=== PATIENT | male | born 1950 | race Caucasian/White ===

== ENCOUNTER 2016-06-12 14:09 | Emergency (ER) | payer MEDICARE, OTHER ==
[~2016-06-12] VITALS: Ht 177.8 cm; Wt 165.6 kg
[~2016-06-12 14:09] MED LIST: ALLOPURINOL PO; ALLOPURINOL100 MG PO; AMBIEN10 MG PO; ASPIRIN325 MG PO; ATENOLOL PO; ATENOLOL25 MG PO; BACTROBAN CREAM15 GM PO; BUMEX PO; BUMEX2 MG PO; DAYPRO600 M1 PO; INDOCIN50 MG PO; KEFLEX500 MG PO; LISINOPRIL HCTZ1 TAB PO; LISINOPRIL10 MG PO; POTASSIUM PO; POTASSIUM20 MEQ PO; SIMVASTATIN20 MG PO; URIC ACID PO
[2016-06-12] MEDS ORDERED: TRAMADOL HCL50 MG PO (14:30)
[2016-06-12 14:31] VITALS: BP 120/55
[2016-06-12] MEDS ORDERED: MELOXICAM7.5 MG PO (14:31)
[2016-06-12] MEDS ORDERED: KEFLEX500 M1 PO (14:41)
== END 2016-06-12 15:02 | disposition home or self-care (01) ==
LOC: ED 14:09
DX: S81.811A Laceration without foreign body, right lower leg, initial encounter (principal); Z88.8 Allergy status to other drugs, medicaments and biological substances; W45.8XXA Other foreign body or object entering through skin, initial encounter; Y93.89 Activity, other specified; Y92.9 Unspecified place or not applicable; Y99.9 Unspecified external cause status

== ENCOUNTER 2016-11-15 15:31 | Emergency (ER) | payer MEDICARE, OTHER ==
[~2016-11-15] VITALS: Ht 175.2 cm; Wt 163.3 kg
[~2016-11-15 15:31] MED LIST changes: +KEFLEX500 M1 PO; +MELOXICAM7.5 MG PO; +TRAMADOL HCL50 MG PO
[2016-11-15 15:34] VITALS: BP 169/79
[2016-11-15] MEDS ORDERED: GLUCOSAMINE SU500 MG PO (15:36)
[2016-11-15] MEDS ORDERED: CEPHALEXIN500 M1 PO (16:36)
== END 2016-11-15 16:42 | disposition home or self-care (01) ==
LOC: ED 15:31
DX: S81.812A Laceration without foreign body, left lower leg, initial encounter (principal); Z88.8 Allergy status to other drugs, medicaments and biological substances; Z79.899 Other long term (current) drug therapy; X58.XXXA Exposure to other specified factors, initial encounter; Y93.89 Activity, other specified; Y92.89 Other specified places as the place of occurrence of the external cause; Y99.8 Other external cause status

== ENCOUNTER 2017-01-13 15:30 | Emergency (ER) | payer MEDICARE, OTHER ==
[~2017-01-13] VITALS: Ht 175.2 cm; Wt 163.3 kg
[~2017-01-13 15:30] MED LIST changes: +CEPHALEXIN500 M1 PO; +GLUCOSAMINE SU500 MG PO
[2017-01-13 15:33] VITALS: BP 147/68
[2017-01-13] MEDS ORDERED: CEFADROXIL500 M1 PO (16:44)
== END 2017-01-13 17:53 | disposition home or self-care (01) ==
LOC: ED 15:30
DX: S81.811A Laceration without foreign body, right lower leg, initial encounter (principal); Z88.8 Allergy status to other drugs, medicaments and biological substances; Z79.899 Other long term (current) drug therapy; W29.3XXA Contact with powered garden and outdoor hand tools and machinery, initial encounter; Y93.89 Activity, other specified; Y92.89 Other specified places as the place of occurrence of the external cause; Y99.8 Other external cause status

== ENCOUNTER → 2017-01-14 | Outpatient (CLI) | payer MEDICARE, OTHER ==
[~2017-01-14] MED LIST changes: +CEFADROXIL500 M1 PO
[2017-01-14 11:14] LABS: BUN 23 mg/dl (7-24); CHLORIDE 107 mmol/L (98-107); CHOLESTEROL 182 mg/dL (<200); CREATININE 0.92 mg/dL (0.70-1.30); HDL CHOLESTEROL 63 mg/dl (40-60); LDL CHOLESTEROL 107 mg/dL (9-159); POTASSIUM 4.2 mmol/L (3.5-5.1); SODIUM 143 mmol/L (136-145); TRIGLYCERIDES 59 mg/dl (<150); VLDL CHOLESTEROL 12 mg/dL (6-40)
== END | disposition home or self-care (01) ==
LOC: LAB 10:13
PROVIDERS: Family Medicine
DX: I10 Essential (primary) hypertension (principal); E78.5 Hyperlipidemia, unspecified; E66.01 Morbid (severe) obesity due to excess calories; Z79.899 Other long term (current) drug therapy

== ENCOUNTER → 2017-01-19 | Outpatient (CLI) | payer MEDICARE, OTHER ==
--- NOTE | ~2017-01-19 | WRIGHTHP ---
[place], [place] PATIENT HISTORY AND PHYSICAL EXAM NAME: FRANSISCA CLEARY [facility] #: [id number] UNIT #: [id number] ROOM: DOCTOR: COREY JOSUE M.D. BIRTHDATE: [birth year] DOS: 01/19/2017 This is a new wound care evaluation. CHIEF COMPLAINT: Chronic wound of the right lower extremity. HISTORY OF PRESENT ILLNESS: A 66-year-old male with a history of severe leg edema who basically injured his anterior leg when he was using a chain saw. Apparently, the handle end of the chainsaw bumped his anterior leg, right leg, severely suffered a very large avulsion type injury of the anterior tibia. He did get saw dust into the wound and went to the Emergency Department for an evaluation. This is approximately a week ago. The wound was cleansed, however, due to the way the injury was, there was really no way to suture the wound together. They had prescribed him some antibiotics, Keflex, I believe and Bactroban to the wound base, so he has been using that was advised to come to the wound clinic. PAST MEDICAL HISTORY: Significant for bilateral lower extremity swelling. Apparently, he has had wounds on his left leg that took quite a while to heal. He has a history of peripheral vascular disease and what sounds like multiple venous studies and he thinks he has had venous ablation done approximately 3 years ago. When I asked if he has had any arterial problems. He does not recall that specifically. He has chronic edema; however, no history of acute DVT that he is aware of. He has not had any recent hospital admissions. PAST SURGICAL HISTORY: He has had a repair of bowel abscess several years ago, bilateral cataract surgery. SOCIAL HISTORY: He does drink alcohol and does not smoke, although has smoked many, many years ago. He is not diabetic. ALLERGIES: Antihistamines. MEDICATIONS: As follows: Tramadol 50 mg p.o. q.i.d. p.r.n., glucosamine 500 p.o. daily, atenolol 25 p.o. b.i.d., Bumex 2 mg daily, meloxicam 7.5 daily, potassium chloride 20 mEq daily, Keflex 500 p.o. b.i.d. for 7 days. REVIEW OF SYSTEMS: He denies any chest pain consistent with angina or shortness of breath. No nausea or vomiting, abdominal pain, or diarrhea. No problems with the Keflex that he is taking for his wound. There is very little drainage coming from the wound. He does have some erythema noted around the leg. He says it has been about the same as when he started the antibiotics, although it seems a little bit possibly more pronounced than before. It is not acutely tender. He does have chronic erythema; however, both of his lower extremities. PHYSICAL EXAMINATION: VITAL SIGNS: His vitals are stable. Temperature is 98.5, pulse of 72, respirations 20, blood pressure is 112/60. GENERAL: This is a male who appears as stated age, is a very pleasant and cooperative, is morbidly obese, in no acute distress. His oropharynx is clear. [place], [place] PATIENT HISTORY AND PHYSICAL EXAM NAME: FRANSISCA CLEARY UNIT #: [id number] ROOM: DOCTOR: COREY JOSUE M.D. BIRTHDATE: [birth year] EENT: Extraocular movements are intact. Sclerae are anicteric. NECK: There is no JVD that I could appreciate. LUNGS: Clear to auscultation. CARDIOVASCULAR: S1, S2 regular rate and rhythm. ABDOMEN: Soft and nontender. EXTREMITIES: He has got edema bilaterally quite extensive marked with chronic stasis changes and more like a pitting type of edema. His dorsalis pedis pulse is palpable and having a difficult time feeling the posterior tibial because of this severe edema. The ABIs cannot be performed due to him having trouble lying flat and also due to the extent of edema that he has. He has a got normal capillary refill and his toes are warm and monofilament testing is normal. He has a fairly large open area on the right anterior leg that is measuring 4.4 x 1.7 x 0.1. There is a moderate amount of devitalized tissue. There is a fairly thick eschar in the center, but then there is an open area around it as well as devitalized epidermis just sloughing off at the edges of the wound. A selective debridement was done to remove devitalized tissue. This was accomplished with forceps and scissors. There is lxeyzex-dg-sxkeqmjh bleeding that was controlled with pressure. Cetacaine spray was used for topical anesthesia. Timeout was conducted prior to the start of the procedure. The patient tolerated the debridement well. Post-debridement measurements are slightly larger at 4.2 x 2.5 x 0.2. The fat layer was exposed and there is still some devitalized tissue, left post-debridement. ASSESSMENT AND PLAN: Traumatic injury of the right lower extremity in a patient with venous stasis and severe lymphedema. We would like to use TheraHoney at this time for debridement purposes and Tubigrip for edema control presently. We will go ahead and arrange for arterial studies to be done for the patient. He may benefit from compression wrap to facilitate healing. It did take him a long time to heal in the past. He was aware that he is nondiabetic. I will look and see when he had any recent blood work and if he has not had anything recently. We will go ahead and consider ordering baseline labs. Followup is in one week. At some point, the patient may benefit from lymphedema therapy and we should consider ordering compression wraps for him in the future such as a 2 layer compression system if the patient is agreeable. There was some sdwvatu-qh-iyhalgja erythema noticeable on the right lower extremity. He is on antibiotics; however, it does seem to be more pronounced than the left leg, so I would like to go ahead and start him on doxycycline 100 twice a day for now in addition to the Keflex that he is on. He is to follow up with us in one week. [place], [place] PATIENT HISTORY AND PHYSICAL EXAM NAME: FRANSISCA CLEARY [facility] #: [id number] UNIT #: [id number] ROOM: DOCTOR: COREY JOSUE M.D. BIRTHDATE: [birth year] COREY JOSUE MD CM:HISPHYS:PATIENT HISTORY AND PHYSICAL EXAMINATION [id number] COREY JOSUE M.D. 01/19/171713 interface
== END | disposition home or self-care (01) ==
LOC: WOUNDCARE 03:45
DX: S80.811D Abrasion, right lower leg, subsequent encounter (principal); I87.2 Venous insufficiency (chronic) (peripheral); I89.0 Lymphedema, not elsewhere classified; I73.9 Peripheral vascular disease, unspecified; Z87.891 Personal history of nicotine dependence; X58.XXXD Exposure to other specified factors, subsequent encounter

== ENCOUNTER → 2017-01-27 | Outpatient (CLI) | payer MEDICARE, OTHER ==
--- NOTE | ~2017-01-27 | PR ---
[place], [place] PROGRESS NOTE NAME: FRANSISCA CLEARY [facility] #: [id number] UNIT #: [id number] ROOM: DOCTOR: COREY JOSUE M.D. BIRTHDATE: [birth year] DOS: 01/27/2017 CHIEF COMPLAINT: Ulcer of the right lower extremity. HISTORY OF PRESENT ILLNESS: This is a 66-year-old male with a history of morbid obesity and lymphedema who suffered a traumatic wound to his right lower extremity. He was seen here in the wound clinic one week ago where he did have a fair amount of necrotic tissue present. TheraHoney was prescribed. He did also have some surrounding erythema and antibiotics were also prescribed. He is completing the antibiotics without any problems. He says the wound, he thinks it is looking better. He is using TheraHoney every day. There is no significant pain or drainage. He just had his arterial Dopplers done and we do not have the report yet. OBJECTIVE: VITAL SIGNS: Stable. Temperature is 97.9, pulse 60, respirations 18, blood pressure is 150/70. SKIN: The wound is 3.7 x 1.5 x 0.1. There is still a moderate amount of necrotic tissue present. There is really no surrounding erythema. It is not acutely tender. A debridement was done. The tissue removed was fibrin, slough and subcutaneous tissue. The patient tolerated the debridement well. The post-debridement measurements are slightly larger at 3.9 x 2.2 x 0.2 in depth. ASSESSMENT AND PLAN: Traumatic wound of the right lower extremity, which appears stable. There is still some necrotic tissue present. I will continue with TheraHoney. Have him follow up in one week. We will review the arterial Dopplers with the patient. COREY JOSUE MD CM:PNTRANS [id number] COREY JOSUE M.D. 01/28/17 0755 interface
== END | disposition home or self-care (01) ==
LOC: US 02:32
DX: S81.801A Unspecified open wound, right lower leg, initial encounter (principal); I73.9 Peripheral vascular disease, unspecified; M79.89 Other specified soft tissue disorders; X58.XXXA Exposure to other specified factors, initial encounter; Y93.89 Activity, other specified; Y92.89 Other specified places as the place of occurrence of the external cause; Y99.8 Other external cause status

== ENCOUNTER → 2017-02-03 | Outpatient (CLI) | payer MEDICARE, OTHER ==
--- NOTE | ~2017-02-03 | PR ---
[place], [place] PROGRESS NOTE NAME: FRANSISCA CLEARY [facility] #: [id number] UNIT #: [id number] ROOM: DOCTOR: JOSELO FerroCOREY BIRTHDATE: [birth year] DOS: 02/03/2017 WOUND CARE PROGRESS NOTE CHIEF COMPLAINT: Ulcer of the right lower extremity. HISTORY OF PRESENT ILLNESS: A 66-year-old male with a history of morbid obesity and lymphedema had suffered a traumatic wound to the right lower extremity anterior tibial area and he has been coming to the wound clinic for 2 weeks now. We have been using TheraHoney on it to help debride the wound. He did have his arterial Dopplers done last week. We got the report back, which states normal bilateral lower extremity arterial duplex, no evidence of significant arterial occlusive disease, which is quite different than our ABIs that are on our documentation. In any case, he comes in today without any specific complaints. He has a new small abrasion next to the original wound that he thinks he sustained as he bumped his leg again, but it is fairly new. OBJECTIVE: VITAL SIGNS: Stable, temperature is 98.8, pulse is 62, respirations are 18 and blood pressure is 142/84. SKIN: The wound is measuring 3.5 x 2.7 x 0.1. Overall, it looks pretty good. It is not clear to me why the depth or the width is different but overall looks smaller to me. There is still moderate amount of fibrin and slough present in the base of the wound. I believe that a lot of the changes in the width is likely due to the fact that he had a lot of trauma to the area and the actual open area was not including the original traumatic area and a lot of that tissue had been compromised and has eventually sloughed off, but overall the periphery of the wound looks like it is healing and there is epithelialization around it. There are no acute signs of infection and there is no purulence. Debridement was done. The tissue removed was fibrin, slough and subcutaneous tissue. There was minimal to moderate bleeding, controlled with pressure. The patient tolerated the debridement well. ASSESSMENT AND PLAN: Traumatic wound of the right lower extremity complicated by severe edema. I would like to go ahead and add Santyl and see if we can get Santyl instead of TheraHoney to the wound base and add Bactroban for bioburden control. He thinks his arterial Dopplers were good. We can try to see if he can tolerate a 2-layer Tubigrip. He does not really wish to go with any type of further compression wraps that he cannot remove on a daily basis. So, we will go ahead and do a 2-layer Tubigrip today. He is going to hopefully change the dressing every day. Followup in 1 week. [place], [place] PROGRESS NOTE NAME: FRANSISCA CLEARY UNIT #: [id number] ROOM: DOCTOR: COREY JOSUE M.D. BIRTHDATE: [birth year] COREY JOSUE MD CM:CRISSY [id number] COREY JOSUE M.D. 02/03/17 1604 interface
== END | disposition home or self-care (01) ==
LOC: WOUNDCARE 00:53
DX: I87.2 Venous insufficiency (chronic) (peripheral) (principal); L97.811 Non-pressure chronic ulcer of other part of right lower leg limited to breakdown of skin; E66.01 Morbid (severe) obesity due to excess calories; I89.0 Lymphedema, not elsewhere classified

== ENCOUNTER → 2017-02-10 | Outpatient (CLI) | payer MEDICARE, OTHER | END | disposition home or self-care (01) | LOC: WOUNDCARE 02:17 | DX: S81.801D Unspecified open wound, right lower leg, subsequent encounter (principal); Z87.891 Personal history of nicotine dependence; I73.9 Peripheral vascular disease, unspecified; X58.XXXD Exposure to other specified factors, subsequent encounter ==

== ENCOUNTER → 2017-02-17 | Outpatient (CLI) | payer MEDICARE, OTHER ==
[~2017-02-17] MED LIST changes: +CYCLOBENZAPRINE10 MG PO; +PREDNISONE50 MG PO; +TYLENOL325 M1 PO; +ULTRAM50 MG PO
== END | disposition home or self-care (01) ==
LOC: WOUNDCARE 00:25
DX: S81.811D Laceration without foreign body, right lower leg, subsequent encounter (principal); I87.2 Venous insufficiency (chronic) (peripheral); I89.0 Lymphedema, not elsewhere classified; E66.01 Morbid (severe) obesity due to excess calories; I73.9 Peripheral vascular disease, unspecified; Z87.891 Personal history of nicotine dependence; Z68.43 Body mass index [BMI] 50.0-59.9, adult; X58.XXXD Exposure to other specified factors, subsequent encounter

== ENCOUNTER → 2017-02-24 | Outpatient (CLI) | payer MEDICARE, OTHER ==
[~2017-02-24] MED LIST changes: -CYCLOBENZAPRINE10 MG PO; -PREDNISONE50 MG PO; -TYLENOL325 M1 PO; -ULTRAM50 MG PO
== END | disposition home or self-care (01) ==
LOC: WOUNDCARE 01:09
DX: S81.801D Unspecified open wound, right lower leg, subsequent encounter (principal); I87.2 Venous insufficiency (chronic) (peripheral); I89.0 Lymphedema, not elsewhere classified; E66.01 Morbid (severe) obesity due to excess calories; Z68.43 Body mass index [BMI] 50.0-59.9, adult; Z87.891 Personal history of nicotine dependence; X58.XXXD Exposure to other specified factors, subsequent encounter

== ENCOUNTER → 2017-03-01 | Outpatient (CLI) | payer MEDICARE, OTHER | END | disposition home or self-care (01) | LOC: WOUNDCARE 04:59 | DX: S80.811D Abrasion, right lower leg, subsequent encounter (principal); I87.2 Venous insufficiency (chronic) (peripheral); I89.0 Lymphedema, not elsewhere classified; E66.01 Morbid (severe) obesity due to excess calories; I73.9 Peripheral vascular disease, unspecified; Z87.891 Personal history of nicotine dependence; Z68.43 Body mass index [BMI] 50.0-59.9, adult; X58.XXXD Exposure to other specified factors, subsequent encounter ==

== ENCOUNTER → 2017-03-08 | Outpatient (CLI) | payer MEDICARE, OTHER | END | disposition home or self-care (01) | LOC: WOUNDCARE 03:04 | DX: S81.801A Unspecified open wound, right lower leg, initial encounter (principal); I87.2 Venous insufficiency (chronic) (peripheral); I89.0 Lymphedema, not elsewhere classified; E66.01 Morbid (severe) obesity due to excess calories; I73.9 Peripheral vascular disease, unspecified; Z87.891 Personal history of nicotine dependence; X58.XXXA Exposure to other specified factors, initial encounter; Y93.89 Activity, other specified; Y92.89 Other specified places as the place of occurrence of the external cause; Y99.8 Other external cause status ==

== ENCOUNTER → 2017-03-15 | Outpatient (CLI) | payer MEDICARE, OTHER | END | disposition home or self-care (01) | LOC: WOUNDCARE 01:31 | DX: S80.811D Abrasion, right lower leg, subsequent encounter (principal); I87.2 Venous insufficiency (chronic) (peripheral); I89.0 Lymphedema, not elsewhere classified; E66.01 Morbid (severe) obesity due to excess calories; Z87.891 Personal history of nicotine dependence; X58.XXXD Exposure to other specified factors, subsequent encounter ==

== ENCOUNTER → 2017-03-22 | Outpatient (CLI) | payer MEDICARE, OTHER | END | disposition home or self-care (01) | LOC: WOUNDCARE 02:34 | DX: S81.802D Unspecified open wound, left lower leg, subsequent encounter (principal); S80.811D Abrasion, right lower leg, subsequent encounter; I87.2 Venous insufficiency (chronic) (peripheral); I89.0 Lymphedema, not elsewhere classified; E66.01 Morbid (severe) obesity due to excess calories; Z87.891 Personal history of nicotine dependence; Z68.43 Body mass index [BMI] 50.0-59.9, adult; X58.XXXD Exposure to other specified factors, subsequent encounter ==

== ENCOUNTER 2017-04-13 08:38 | Emergency (ER) | payer MEDICARE, OTHER ==
[~2017-04-13] VITALS: Ht 175.2 cm; Wt 165.6 kg
[2017-04-13 08:46] VITALS: BP 153/59
[2017-04-13] MEDS ORDERED: ULTRAM50 MG PO (10:17)
[2017-04-13] MEDS ORDERED: PREDNISONE50 MG PO (10:17)
== END 2017-04-13 10:25 | disposition home or self-care (01) ==
LOC: ED 08:38
DX: S76.011A Strain of muscle, fascia and tendon of right hip, initial encounter (principal); Z88.8 Allergy status to other drugs, medicaments and biological substances; Z79.899 Other long term (current) drug therapy; X58.XXXA Exposure to other specified factors, initial encounter; Y93.89 Activity, other specified; Y92.89 Other specified places as the place of occurrence of the external cause; Y99.8 Other external cause status

== ENCOUNTER 2017-04-28 01:47 | Emergency (ER) | payer MEDICARE, OTHER ==
[~2017-04-28] VITALS: Ht 175.2 cm; Wt 165.6 kg
[~2017-04-28 01:47] MED LIST changes: +PREDNISONE50 MG PO; +ULTRAM50 MG PO
[2017-04-28 01:59] VITALS: BP 144/61
[2017-04-28] MEDS ORDERED: TYLENOL325 M1 PO (02:12)
[2017-04-28] MEDS ORDERED: CYCLOBENZAPRINE10 MG PO (02:12)
== END 2017-04-28 02:46 | disposition home or self-care (01) ==
LOC: ED 01:47
DX: M54.31 Sciatica, right side (principal); F10.10 Alcohol abuse, uncomplicated; Z88.8 Allergy status to other drugs, medicaments and biological substances; Z79.899 Other long term (current) drug therapy

== ENCOUNTER → 2018-03-01 | Outpatient (CLI) | payer MEDICARE, OTHER ==
[~2018-03-01] MED LIST changes: +CYCLOBENZAPRINE10 MG PO; +TYLENOL325 M1 PO
[2018-03-01 11:32] LABS: BASO % 0.5 % (0.0-1.0); EOS # 0.3 10*3/uL (0.0-0.4); EOS % 4.2 % (1.0-4.0); HEMOGLOBIN 12.6 g/dl (14.0-18.0); LYMPH # 1.5 10*3/uL (1.3-4.4); LYMPH % 24.8 % (27.0-41.0); MEAN CELL VOLUME 93.6 fl (80.0-94.0); MEAN CORPUSCULAR HGB CONC 33.2 g/dl (33.0-37.0); MEAN PLATELET VOLUME 10.6 fl (9.6-12.3); MONO # 0.7 10*3/uL (0.1-1.0); MONO % 10.8 % (3.0-9.0); NEUT # 3.7 10*3/uL (2.3-7.9); NEUT % 59.4 % (47.0-73.0); PLATELET COUNT AUTOMATED 149 10*3/uL (130-400); RED BLOOD COUNT 4.06 10*6/uL (4.50-5.90); RED CELL DISTRI WIDTH 13.6 % (0-14.5); WHITE BLOOD COUNT 6.2 10*3/uL (4.8-10.8)
[2018-03-01 12:03] LABS: ALBUMIN 3.5 gm/dl (3.1-4.5); ALKALINE PHOSPHATASE 51 U/L (45-117); BUN 10 mg/dl (7-24); CHLORIDE 106 mmol/L (98-107); CREATININE 0.83 mg/dL (0.70-1.30); SGOT/AST 20 IU/L (3-35); SGPT/ALT 15 U/L (12-78); SODIUM 142 mmol/L (136-145); TOTAL PROTEIN 6.7 gm/dL (6.4-8.2)
[2018-03-01 12:26] LABS: VITAMIN D, 25-HYDROXY 56.6 ng/mL (30-100)
== END | disposition home or self-care (01) ==
LOC: LAB 11:00
PROVIDERS: Surgery
DX: D50.9 Iron deficiency anemia, unspecified (principal); K90.89 Other intestinal malabsorption; E55.9 Vitamin D deficiency, unspecified; Z98.84 Bariatric surgery status

== ENCOUNTER → 2018-07-24 | Outpatient (CLI) | payer MEDICARE, OTHER ==
[2018-07-24 09:36] LABS: BASO % 0.6 % (0.0-1.0); EOS # 0.2 10*3/uL (0.0-0.4); HEMATOCRIT 40.5 % (42.0-52.0); HEMOGLOBIN 12.8 g/dl (14.0-18.0); LYMPH # 1.5 10*3/uL (1.3-4.4); LYMPH % 24.3 % (27.0-41.0); MEAN CELL VOLUME 96.2 fl (80.0-94.0); MEAN CORPUSCULAR HGB 30.4 pg (27.0-31.0); MEAN CORPUSCULAR HGB CONC 31.6 g/dl (33.0-37.0); MEAN PLATELET VOLUME 10.8 fl (9.6-12.3); MONO # 0.5 10*3/uL (0.1-1.0); NEUT # 4.1 10*3/uL (2.3-7.9); NEUT % 63.8 % (47.0-73.0); PLATELET COUNT AUTOMATED 174 10*3/uL (130-400); RED BLOOD COUNT 4.21 10*6/uL (4.50-5.90); RED CELL DISTRI WIDTH 13.4 % (0-14.5); WHITE BLOOD COUNT 6.4 10*3/uL (4.8-10.8)
[2018-07-24 10:00] LABS: ALBUMIN 3.6 gm/dl (3.1-4.5); BUN 19 mg/dl (7-24); CHLORIDE 104 mmol/L (98-107); POTASSIUM 4.5 mmol/L (3.5-5.1); SGOT/AST 20 IU/L (3-35); SGPT/ALT 18 U/L (12-78); SODIUM 142 mmol/L (136-145); TOTAL PROTEIN 7.1 gm/dL (6.4-8.2)
[2018-07-24 10:01] LABS: ALKALINE PHOSPHATASE 62 U/L (45-117); CREATININE 0.97 mg/dL (0.70-1.30)
[2018-07-24 10:44] LABS: FERRITIN 457.6 ng/mL (22.0-322.0); VITAMIN D, 25-HYDROXY 62.6 ng/mL (30-100)
== END | disposition home or self-care (01) ==
LOC: LAB 08:49
PROVIDERS: Surgery
DX: K90.89 Other intestinal malabsorption (principal); E55.9 Vitamin D deficiency, unspecified; Z98.84 Bariatric surgery status

== ENCOUNTER → 2018-08-30 | Outpatient (CLI) | payer MEDICARE, OTHER | END | disposition home or self-care (01) | LOC: LAB 07:55 | DX: Z12.5 Encounter for screening for malignant neoplasm of prostate (principal) ==

== ENCOUNTER → 2018-10-26 | Outpatient (CLI) | payer MEDICARE, OTHER ==
[2018-10-26 08:09] LABS: BASO # 0.1 10*3/uL (0.0-0.1); EOS # 0.3 10*3/uL (0.0-0.4); EOS % 5.6 % (1.0-4.0); LYMPH # 1.7 10*3/uL (1.3-4.4); LYMPH % 33.1 % (27.0-41.0); MEAN CELL VOLUME 96.9 fl (80.0-94.0); MEAN CORPUSCULAR HGB 31.4 pg (27.0-31.0); MEAN CORPUSCULAR HGB CONC 32.4 g/dl (33.0-37.0); MEAN PLATELET VOLUME 10.3 fl (9.6-12.3); MONO # 0.5 10*3/uL (0.1-1.0); MONO % 10.3 % (3.0-9.0); NEUT # 2.6 10*3/uL (2.3-7.9); PLATELET COUNT AUTOMATED 140 10*3/uL (130-400); RED BLOOD COUNT 3.82 10*6/uL (4.50-5.90); RED CELL DISTRI WIDTH 13.6 % (0-14.5); WHITE BLOOD COUNT 5.2 10*3/uL (4.8-10.8)
[2018-10-26 08:48] LABS: ALBUMIN 3.6 gm/dl (3.1-4.5); ALKALINE PHOSPHATASE 53 U/L (45-117); BUN 20 mg/dl (7-24); CHLORIDE 105 mmol/L (98-107); CREATININE 1.08 mg/dL (0.70-1.30); POTASSIUM 3.6 mmol/L (3.5-5.1); SGOT/AST 22 IU/L (3-35); SGPT/ALT 17 U/L (12-78); SODIUM 142 mmol/L (136-145); TOTAL PROTEIN 6.4 gm/dL (6.4-8.2)
== END | disposition home or self-care (01) ==
LOC: LAB 07:41
PROVIDERS: Family Medicine
DX: R68.83 Chills (without fever) (principal)

== ENCOUNTER → 2019-01-09 | Outpatient (CLI) | payer MEDICARE, OTHER ==
[2019-01-09 09:56] LABS: ALBUMIN 3.5 gm/dl (3.1-4.5); ALKALINE PHOSPHATASE 49 U/L (45-117); BUN 22 mg/dl (7-24); CHLORIDE 106 mmol/L (98-107); CREATININE 0.92 mg/dL (0.70-1.30); POTASSIUM 3.9 mmol/L (3.5-5.1); SGOT/AST 19 IU/L (3-35); SGPT/ALT 18 U/L (12-78); SODIUM 143 mmol/L (136-145); TOTAL PROTEIN 6.2 gm/dL (6.4-8.2)
[2019-01-09 10:11] LABS: BASO # 0.1 10*3/uL (0.0-0.1); EOS # 0.3 10*3/uL (0.0-0.4); EOS % 5.9 % (1.0-4.0); HEMATOCRIT 35.8 % (42.0-52.0); HEMOGLOBIN 11.6 g/dl (14.0-18.0); LYMPH # 1.6 10*3/uL (1.3-4.4); LYMPH % 32.5 % (27.0-41.0); MEAN CELL VOLUME 97.5 fl (80.0-94.0); MEAN CORPUSCULAR HGB 31.6 pg (27.0-31.0); MEAN CORPUSCULAR HGB CONC 32.4 g/dl (33.0-37.0); MEAN PLATELET VOLUME 10.5 fl (9.6-12.3); MONO # 0.5 10*3/uL (0.1-1.0); MONO % 9.3 % (3.0-9.0); NEUT # 2.5 10*3/uL (2.3-7.9); NEUT % 51.1 % (47.0-73.0); PLATELET COUNT AUTOMATED 148 10*3/uL (130-400); RED BLOOD COUNT 3.67 10*6/uL (4.50-5.90); RED CELL DISTRI WIDTH 13.5 % (0-14.5); WHITE BLOOD COUNT 4.9 10*3/uL (4.8-10.8)
== END | disposition home or self-care (01) ==
LOC: LAB 08:52
PROVIDERS: Family Medicine
DX: D64.9 Anemia, unspecified (principal)

== ENCOUNTER → 2019-02-27 | Outpatient (CLI) | payer MEDICARE, OTHER ==
[2019-02-27 09:19] LABS: BASO # 0.1 10*3/uL (0.0-0.1); EOS # 0.2 10*3/uL (0.0-0.4); EOS % 4.9 % (1.0-4.0); HEMATOCRIT 35.4 % (42.0-52.0); HEMOGLOBIN 11.5 g/dl (14.0-18.0); LYMPH # 1.8 10*3/uL (1.3-4.4); LYMPH % 36.4 % (27.0-41.0); MEAN CELL VOLUME 96.2 fl (80.0-94.0); MEAN CORPUSCULAR HGB 31.3 pg (27.0-31.0); MEAN CORPUSCULAR HGB CONC 32.5 g/dl (33.0-37.0); MEAN PLATELET VOLUME 10.4 fl (9.6-12.3); MONO # 0.5 10*3/uL (0.1-1.0); MONO % 9.8 % (3.0-9.0); NEUT # 2.3 10*3/uL (2.3-7.9); NEUT % 47.7 % (47.0-73.0); PLATELET COUNT AUTOMATED 163 10*3/uL (130-400); RED BLOOD COUNT 3.68 10*6/uL (4.50-5.90); RED CELL DISTRI WIDTH 13.4 % (0-14.5); WHITE BLOOD COUNT 4.9 10*3/uL (4.8-10.8)
[2019-02-27 09:38] LABS: ALBUMIN 3.7 gm/dl (3.1-4.5); ALKALINE PHOSPHATASE 49 U/L (45-117); BUN 23 mg/dl (7-24); CHLORIDE 105 mmol/L (98-107); CREATININE 0.92 mg/dL (0.70-1.30); POTASSIUM 3.9 mmol/L (3.5-5.1); SGOT/AST 21 IU/L (3-35); SGPT/ALT 22 U/L (12-78); SODIUM 139 mmol/L (136-145); TOTAL PROTEIN 6.7 gm/dL (6.4-8.2)
[2019-02-27 09:59] LABS: FERRITIN 441.7 ng/mL (22.0-322.0); VITAMIN D, 25-HYDROXY 54.7 ng/mL (30-100)
== END | disposition home or self-care (01) ==
LOC: LAB 08:42
PROVIDERS: Surgery
DX: K90.89 Other intestinal malabsorption (principal); E55.9 Vitamin D deficiency, unspecified; Z98.84 Bariatric surgery status

== ENCOUNTER → 2019-10-08 | Outpatient (CLI) | payer MEDICARE, OTHER ==
[2019-10-08 08:31] LABS: BASO # 0.1 10*3/uL (0.0-0.1); BASO % 1.1 % (0.0-1.0); EOS # 0.2 10*3/uL (0.0-0.4); EOS % 4.1 % (1.0-4.0); HEMATOCRIT 38.7 % (42.0-52.0); LYMPH # 1.5 10*3/uL (1.3-4.4); LYMPH % 27.2 % (27.0-41.0); MEAN CELL VOLUME 97.5 fl (80.0-94.0); MEAN CORPUSCULAR HGB CONC 32.8 g/dl (33.0-37.0); MEAN PLATELET VOLUME 10.1 fl (9.6-12.3); MONO # 0.5 10*3/uL (0.1-1.0); MONO % 9.3 % (3.0-9.0); NEUT # 3.2 10*3/uL (2.3-7.9); NEUT % 57.9 % (47.0-73.0); PLATELET COUNT AUTOMATED 167 10*3/uL (130-400); RED BLOOD COUNT 3.97 10*6/uL (4.50-5.90); RED CELL DISTRI WIDTH 12.7 % (0-14.5); WHITE BLOOD COUNT 5.6 10*3/uL (4.8-10.8)
[2019-10-08 09:02] LABS: ALBUMIN 3.5 gm/dl (3.1-4.5); BUN 22 mg/dl (7-24); CHLORIDE 111 mmol/L (98-107); POTASSIUM 4.4 mmol/L (3.5-5.1); SODIUM 143 mmol/L (136-145)
[2019-10-08 09:06] LABS: ALKALINE PHOSPHATASE 61 U/L (45-117); CREATININE 0.91 mg/dL (0.70-1.30); SGOT/AST 20 IU/L (3-35); SGPT/ALT 22 U/L (12-78); TOTAL PROTEIN 6.7 gm/dL (6.4-8.2)
[2019-10-08 10:20] LABS: FERRITIN 260.6 ng/mL (22.0-322.0); VITAMIN D, 25-HYDROXY 60.4 ng/mL (30-100)
== END | disposition home or self-care (01) ==
LOC: LAB 07:53
PROVIDERS: Surgery
DX: E55.9 Vitamin D deficiency, unspecified (principal); K90.89 Other intestinal malabsorption; Z98.84 Bariatric surgery status

== ENCOUNTER → 2020-02-26 | Outpatient (CLI) | payer MEDICARE, OTHER ==
[2020-02-26 08:36] LABS: BASO % 0.7 % (0.0-1.0); EOS # 0.3 10*3/uL (0.0-0.4); EOS % 4.6 % (1.0-4.0); HEMATOCRIT 40.6 % (42.0-52.0); LYMPH # 1.9 10*3/uL (1.3-4.4); LYMPH % 34.1 % (27.0-41.0); MEAN CELL VOLUME 96.9 fl (80.0-94.0); MEAN CORPUSCULAR HGB 31.3 pg (27.0-31.0); MEAN CORPUSCULAR HGB CONC 32.3 g/dl (33.0-37.0); MEAN PLATELET VOLUME 10.2 fl (9.6-12.3); MONO # 0.5 10*3/uL (0.1-1.0); MONO % 9.9 % (3.0-9.0); NEUT # 2.8 10*3/uL (2.3-7.9); NEUT % 50.5 % (47.0-73.0); PLATELET COUNT AUTOMATED 169 10*3/uL (130-400); RED BLOOD COUNT 4.19 10*6/uL (4.50-5.90); RED CELL DISTRI WIDTH 12.8 % (0-14.5); WHITE BLOOD COUNT 5.5 10*3/uL (4.8-10.8)
[2020-02-26 09:10] LABS: ALBUMIN 3.6 gm/dl (3.1-4.5); BUN 21 mg/dl (7-24); CHLORIDE 108 mmol/L (98-107); POTASSIUM 4.4 mmol/L (3.5-5.1); SODIUM 142 mmol/L (136-145)
[2020-02-26 09:15] LABS: ALKALINE PHOSPHATASE 58 U/L (45-117); CREATININE 0.99 mg/dL (0.70-1.30); SGOT/AST 23 IU/L (3-35); SGPT/ALT 20 U/L (12-78); TOTAL PROTEIN 6.7 gm/dL (6.4-8.2)
[2020-02-26 09:16] LABS: FERRITIN 348.7 ng/mL (22.0-322.0); VITAMIN D, 25-HYDROXY 55.1 ng/mL (30-100)
== END | disposition home or self-care (01) ==
LOC: LAB 07:53
PROVIDERS: Family Medicine; ATTEND Surgery
DX: Z12.5 Encounter for screening for malignant neoplasm of prostate (principal); I10 Essential (primary) hypertension; E78.5 Hyperlipidemia, unspecified; E55.9 Vitamin D deficiency, unspecified; K90.89 Other intestinal malabsorption

== ENCOUNTER → 2020-03-07 | Outpatient (CLI) | payer MEDICARE, OTHER | END | disposition home or self-care (01) | LOC: RESCLI 05:06 | PROVIDERS: ATTEND Family Medicine | DX: R00.2 Palpitations (principal); R79.89 Other specified abnormal findings of blood chemistry; K21.9 Gastro-esophageal reflux disease without esophagitis; E55.9 Vitamin D deficiency, unspecified; J30.2 Other seasonal allergic rhinitis; Z98.84 Bariatric surgery status; Z79.899 Other long term (current) drug therapy; Z23 Encounter for immunization; Z98.890 Other specified postprocedural states ==

== ENCOUNTER → 2020-08-12 | Outpatient (CLI) | payer MEDICARE, OTHER ==
[2020-08-12 10:40] LABS: BASO # 0.1 10*3/uL (0.0-0.1); BASO % 1.2 % (0.0-1.0); EOS # 0.2 10*3/uL (0.0-0.4); EOS % 3.4 % (1.0-4.0); HEMATOCRIT 40.2 % (42.0-52.0); LYMPH # 1.4 10*3/uL (1.3-4.4); MEAN CELL VOLUME 96.9 fl (80.0-94.0); MEAN CORPUSCULAR HGB 30.8 pg (27.0-31.0); MEAN CORPUSCULAR HGB CONC 31.8 g/dl (33.0-37.0); MEAN PLATELET VOLUME 9.5 fl (9.6-12.3); MONO # 0.4 10*3/uL (0.1-1.0); MONO % 8.3 % (3.0-9.0); NEUT # 2.9 10*3/uL (2.3-7.9); NEUT % 57.9 % (47.0-73.0); PLATELET COUNT AUTOMATED 172 10*3/uL (130-400); RED BLOOD COUNT 4.15 10*6/uL (4.50-5.90); RED CELL DISTRI WIDTH 12.9 % (0-14.5)
[2020-08-12 11:12] LABS: ALBUMIN 3.7 gm/dl (3.1-4.5); ALKALINE PHOSPHATASE 65 U/L (45-117); BUN 18 mg/dl (7-24); CHLORIDE 109 mmol/L (98-107); CHOLESTEROL 172 mg/dL (<200); CREATININE 1.04 mg/dL (0.70-1.30); HDL CHOLESTEROL 74 mg/dl (40-60); LDL CHOLESTEROL 86 mg/dL (9-159); POTASSIUM 4.1 mmol/L (3.5-5.1); SGOT/AST 22 IU/L (3-35); SGPT/ALT 25 U/L (12-78); SODIUM 142 mmol/L (136-145); TRIGLYCERIDES 62 mg/dl (<150); VLDL CHOLESTEROL 12 mg/dL (6-40)
[2020-08-12 12:59] LABS: VITAMIN D, 25-HYDROXY 64.3 ng/mL (30-100)
== END | disposition home or self-care (01) ==
LOC: LAB 10:24
PROVIDERS: ATTEND Family Medicine
DX: Z12.5 Encounter for screening for malignant neoplasm of prostate (principal); I10 Essential (primary) hypertension; E78.5 Hyperlipidemia, unspecified; E83.51 Hypocalcemia

== ENCOUNTER → 2020-09-25 | Outpatient (CLI) | payer MEDICARE, OTHER ==
[2020-09-25 08:39] LABS: BASO # 0.1 10*3/uL (0.0-0.1); BASO % 0.9 % (0.0-1.0); EOS # 0.3 10*3/uL (0.0-0.4); EOS % 5.1 % (1.0-4.0); HEMATOCRIT 38.3 % (42.0-52.0); LYMPH # 2.2 10*3/uL (1.3-4.4); LYMPH % 37.3 % (27.0-41.0); MEAN CELL VOLUME 95.5 fl (80.0-94.0); MEAN CORPUSCULAR HGB 31.2 pg (27.0-31.0); MEAN CORPUSCULAR HGB CONC 32.6 g/dl (33.0-37.0); MEAN PLATELET VOLUME 10.4 fl (9.6-12.3); MONO # 0.6 10*3/uL (0.1-1.0); NEUT # 2.7 10*3/uL (2.3-7.9); NEUT % 45.5 % (47.0-73.0); PLATELET COUNT AUTOMATED 174 10*3/uL (130-400); RED BLOOD COUNT 4.01 10*6/uL (4.50-5.90); RED CELL DISTRI WIDTH 12.8 % (0-14.5); WHITE BLOOD COUNT 5.8 10*3/uL (4.8-10.8)
[2020-09-25 08:56] LABS: ALBUMIN 3.5 gm/dl (3.1-4.5); ALKALINE PHOSPHATASE 63 U/L (45-117); BUN 15 mg/dl (7-24); CHLORIDE 111 mmol/L (98-107); CREATININE 0.98 mg/dL (0.70-1.30); POTASSIUM 4.5 mmol/L (3.5-5.1); SGOT/AST 20 IU/L (3-35); SGPT/ALT 20 U/L (12-78); SODIUM 144 mmol/L (136-145); TOTAL PROTEIN 6.7 gm/dL (6.4-8.2)
[2020-09-25 09:45] LABS: FERRITIN 261.8 ng/mL (22.0-322.0); VITAMIN D, 25-HYDROXY 49.9 ng/mL (30-100)
== END | disposition home or self-care (01) ==
LOC: LAB 07:47
PROVIDERS: ATTEND Surgery
DX: E55.9 Vitamin D deficiency, unspecified (principal); K90.89 Other intestinal malabsorption; Z98.84 Bariatric surgery status

== ENCOUNTER 2020-09-29 12:11 | Emergency (ER) | payer MEDICARE, OTHER ==
[~2020-09-29] VITALS: Ht 175.2 cm; Wt 76.2 kg
[2020-09-29 12:22] VITALS: BP 119/64
== END 2020-09-29 18:59 | disposition left against medical advice (07) ==
LOC: ED 12:11
DX: T15.90XA Foreign body on external eye, part unspecified, unspecified eye, initial encounter (principal); Z53.21 Procedure and treatment not carried out due to patient leaving prior to being seen by health care provider; X58.XXXA Exposure to other specified factors, initial encounter; Y93.89 Activity, other specified; Y92.89 Other specified places as the place of occurrence of the external cause; Y99.8 Other external cause status

== ENCOUNTER → 2020-10-22 | Outpatient (CLI) | payer MEDICARE, OTHER ==
[~2020-10-22] MED LIST changes: +CVS GLUCOSAMIN PO; +DAILY VITAMIN1 EAC3 PO; -GLUCOSAMINE SU500 MG PO; +INVIGOFLEX D1500 MG PO; +IRON325 M1 PO; +K-LOR 20MEQ20 ME1 PO; +OMEPRAZOLE20 M2 PO; -POTASSIUM20 MEQ PO; +RA FISH OIL 1,1 EACH PO; +VITAMIN B-12100 MCG PO
== END | disposition home or self-care (01) ==
LOC: CARD 01:32
PROVIDERS: ATTEND Internal Medicine Cardiovascular Disease
DX: R07.9 Chest pain, unspecified (principal)

== ENCOUNTER 2021-01-12 10:14 | Emergency (ER) | payer MEDICARE, OTHER ==
[~2021-01-12] VITALS: Ht 175.2 cm; Wt 74.8 kg
[2021-01-12 10:30] VITALS: BP 142/64
== END 2021-01-12 11:54 | disposition home or self-care (01) ==
LOC: ED 10:14
DX: T63.441A Toxic effect of venom of bees, accidental (unintentional), initial encounter (principal); Z88.8 Allergy status to other drugs, medicaments and biological substances; Z79.899 Other long term (current) drug therapy; Y92.89 Other specified places as the place of occurrence of the external cause

== ENCOUNTER → 2021-03-05 | Outpatient (CLI) | payer MEDICARE, OTHER ==
[2021-03-05 08:31] LABS: BASO # 0.1 10*3/uL (0.0-0.1); EOS # 0.2 10*3/uL (0.0-0.4); EOS % 3.4 % (1.0-4.0); HEMATOCRIT 39.1 % (42.0-52.0); LYMPH # 1.4 10*3/uL (1.3-4.4); LYMPH % 23.7 % (27.0-41.0); MEAN CELL VOLUME 96.3 fl (80.0-94.0); MEAN CORPUSCULAR HGB CONC 32.2 g/dl (33.0-37.0); MEAN PLATELET VOLUME 10.3 fl (9.6-12.3); MONO # 0.6 10*3/uL (0.1-1.0); MONO % 9.8 % (3.0-9.0); NEUT # 3.7 10*3/uL (2.3-7.9); NEUT % 61.9 % (47.0-73.0); PLATELET COUNT AUTOMATED 169 10*3/uL (130-400); RED BLOOD COUNT 4.06 10*6/uL (4.50-5.90); RED CELL DISTRI WIDTH 13.2 % (0-14.5); WHITE BLOOD COUNT 5.9 10*3/uL (4.8-10.8)
[2021-03-05 08:46] LABS: ALBUMIN 3.3 gm/dl (3.1-4.5); ALKALINE PHOSPHATASE 57 U/L (45-117); BUN 20 mg/dl (7-24); CHLORIDE 109 mmol/L (98-107); CHOLESTEROL 166 mg/dL (<200); CREATININE 0.95 mg/dL (0.70-1.30); LDL CHOLESTEROL 80 mg/dL (9-159); SGOT/AST 20 IU/L (3-35); SGPT/ALT 24 U/L (12-78); SODIUM 142 mmol/L (136-145); TOTAL PROTEIN 6.7 gm/dL (6.4-8.2); TRIGLYCERIDES 45 mg/dl (<150)
[2021-03-05 09:02] LABS: VITAMIN D, 25-HYDROXY 48.9 ng/mL (30-100)
== END | disposition home or self-care (01) ==
LOC: LAB 07:58
PROVIDERS: ATTEND Family Medicine
DX: Z12.5 Encounter for screening for malignant neoplasm of prostate (principal); E83.51 Hypocalcemia; E78.5 Hyperlipidemia, unspecified; R73.01 Impaired fasting glucose; M17.0 Bilateral primary osteoarthritis of knee; I10 Essential (primary) hypertension

== ENCOUNTER → 2021-11-25 | Outpatient (CLI) | payer MEDICARE, OTHER ==
[2021-11-25 10:10] LABS: BASO # 0.1 10*3/uL (0.0-0.1); BASO % 0.9 % (0.0-1.0); EOS # 0.4 10*3/uL (0.0-0.4); EOS % 6.6 % (1.0-4.0); HEMATOCRIT 38.3 % (42.0-52.0); LYMPH # 1.4 10*3/uL (1.3-4.4); LYMPH % 26.9 % (27.0-41.0); MEAN CELL VOLUME 95.8 fl (80.0-94.0); MEAN CORPUSCULAR HGB CONC 32.4 g/dl (33.0-37.0); MEAN PLATELET VOLUME 9.6 fl (9.6-12.3); MONO # 0.7 10*3/uL (0.1-1.0); MONO % 12.8 % (3.0-9.0); NEUT # 2.8 10*3/uL (2.3-7.9); NEUT % 52.4 % (47.0-73.0); PLATELET COUNT AUTOMATED 187 10*3/uL (130-400); WHITE BLOOD COUNT 5.3 10*3/uL (4.8-10.8)
[2021-11-25 10:13] LABS: BILIRUBIN Negative (Negative); BLOOD Negative (Negative); CLARITY Clear (Clear); COLOR Dark Yellow (Yellow); GLUCOSE Negative (Negative); KETONE Negative (Negative); LEUKO ESTERASE Trace (Negative); NITRITE Positive (Negative); PH 6.5 (4.5-8.0); SPECIFIC GRAVITY 1.015 (1.001-1.030)
[2021-11-25 10:27] LABS: ALKALINE PHOSPHATASE 55 U/L (45-117); BUN 16 mg/dl (7-24); CHLORIDE 112 mmol/L (98-107); CHOLESTEROL 132 mg/dL (<200); CREATININE 0.92 mg/dL (0.70-1.30); LDL CHOLESTEROL 68 mg/dL (9-159); POTASSIUM 4.4 mmol/L (3.5-5.1); SGOT/AST 20 IU/L (3-35); SGPT/ALT 18 U/L (12-78); SODIUM 142 mmol/L (136-145); TOTAL PROTEIN 6.5 gm/dL (6.4-8.2); TRIGLYCERIDES 54 mg/dl (<150)
[2021-11-25 10:44] LABS: BACTERIA TRACE; RBC 0-2 rbc/hpf (0-2)
[2021-11-25 11:13] LABS: VITAMIN D, 25-HYDROXY 43.9 ng/mL (30-100)
== END | disposition home or self-care (01) ==
LOC: LAB 09:37
PROVIDERS: ATTEND Family Medicine
DX: Z12.5 Encounter for screening for malignant neoplasm of prostate (principal); E11.9 Type 2 diabetes mellitus without complications; M89.49 Other hypertrophic osteoarthropathy, multiple sites; I10 Essential (primary) hypertension; N39.0 Urinary tract infection, site not specified; R34 Anuria and oliguria; R30.0 Dysuria; E55.9 Vitamin D deficiency, unspecified

== ENCOUNTER → 2022-06-22 | Outpatient (CLI) | payer MEDICARE, OTHER ==
[~2022-06-22] MED LIST changes: +ACETYL L-CARNI500 MG PO; +B12 PO; +CALCIUM CITRAT1 EAC8 PO; +CO Q-10300 MG PO; +D3-501250 MCG PO; +DULCOLAX STOOL100 M1 PO
== END | disposition home or self-care (01) ==
LOC: CARD 01:00
PROVIDERS: ATTEND Internal Medicine Cardiovascular Disease
DX: I44.4 Left anterior fascicular block (principal); I44.30 Unspecified atrioventricular block; R00.1 Bradycardia, unspecified; R07.9 Chest pain, unspecified

== ENCOUNTER → 2022-10-07 | Outpatient (CLI) | payer MEDICARE, OTHER ==
[2022-10-07 09:55] LABS: BASO # 0.1 10*3/uL (0.0-0.1); BASO % 0.9 % (0.0-1.0); EOS # 0.2 10*3/uL (0.0-0.4); EOS % 4.1 % (1.0-4.0); HEMATOCRIT 40.3 % (42.0-52.0); LYMPH # 1.3 10*3/uL (1.3-4.4); LYMPH % 24.7 % (27.0-41.0); MEAN CELL VOLUME 96.9 fl (80.0-94.0); MEAN CORPUSCULAR HGB 31.3 pg (27.0-31.0); MEAN CORPUSCULAR HGB CONC 32.3 g/dl (33.0-37.0); MEAN PLATELET VOLUME 10.1 fl (9.6-12.3); MONO # 0.5 10*3/uL (0.1-1.0); MONO % 9.6 % (3.0-9.0); NEUT # 3.2 10*3/uL (2.3-7.9); NEUT % 60.5 % (47.0-73.0); PLATELET COUNT AUTOMATED 173 10*3/uL (130-400); RED BLOOD COUNT 4.16 10*6/uL (4.50-5.90); RED CELL DISTRI WIDTH 12.9 % (0-14.5); WHITE BLOOD COUNT 5.3 10*3/uL (4.8-10.8)
[2022-10-07 10:20] LABS: ALKALINE PHOSPHATASE 60 U/L (46-116); BUN 16 mg/dl (9-23); CHLORIDE 107 mmol/L (98-107); CHOLESTEROL 169 mg/dL (<200); LDL CHOLESTEROL 93 mg/dL (9-159); POTASSIUM 3.9 mmol/L (3.4-5.1); SGPT/ALT 13 U/L (10-49); TOTAL PROTEIN 6.9 gm/dL (6.0-8.0); TRIGLYCERIDES 54 mg/dl (<150)
[2022-10-07 10:26] LABS: VITAMIN D, 25-HYDROXY 47.9 ng/mL (30-100)
== END ==
LOC: LAB 09:05
PROVIDERS: Family Medicine; ATTEND Family Medicine
DX: Z12.5 Encounter for screening for malignant neoplasm of prostate (principal); M10.072 Idiopathic gout, left ankle and foot; I10 Essential (primary) hypertension; E78.00 Pure hypercholesterolemia, unspecified; R73.01 Impaired fasting glucose; E83.51 Hypocalcemia; D75.89 Other specified diseases of blood and blood-forming organs; R34 Anuria and oliguria

== ENCOUNTER 2022-10-11 09:26 | Emergency (ER) | payer MEDICARE, OTHER ==
[~2022-10-11] VITALS: Ht 175.2 cm; Wt 79.4 kg
[2022-10-11 09:41] VITALS: BP 144/56
[2022-10-11 10:43] LABS: HEMATOCRIT 38.7 % (42.0-52.0); MEAN CELL VOLUME 96.3 fl (80.0-94.0); MEAN CORPUSCULAR HGB 32.1 pg (27.0-31.0); MEAN CORPUSCULAR HGB CONC 33.3 g/dl (33.0-37.0); MEAN PLATELET VOLUME 10.1 fl (9.6-12.3); PLATELET COUNT AUTOMATED 152 10*3/uL (130-400); RED BLOOD COUNT 4.02 10*6/uL (4.50-5.90); RED CELL DISTRI WIDTH 12.8 % (0-14.5); WHITE BLOOD COUNT 8.6 10*3/uL (4.8-10.8)
[2022-10-11 10:54] LABS: MANUAL DIFF REFLEX YES
[2022-10-11 11:04] LABS: TOTAL CELLS COUNTED 100 #CELLS
[2022-10-11 11:06] LABS: OVALOCYTES FEW; PLATELET SUFFICIENCY NORMAL (NORMAL); POLYCHROMASIA SLIGHT; TOXIC GRANULATION SLIGHT
[2022-10-11 11:08] LABS: ALKALINE PHOSPHATASE 57 U/L (46-116); BUN 13 mg/dl (9-23); CHLORIDE 107 mmol/L (98-107); POTASSIUM 3.6 mmol/L (3.4-5.1); SGPT/ALT 10 U/L (10-49); TOTAL PROTEIN 6.5 gm/dL (6.0-8.0)
== END 2022-10-11 11:57 | disposition home or self-care (01) ==
LOC: ED 09:26
PROVIDERS: Internal Medicine
DX: B34.9 Viral infection, unspecified (principal); Z88.8 Allergy status to other drugs, medicaments and biological substances; Z79.899 Other long term (current) drug therapy

== ENCOUNTER → 2022-10-22 | Outpatient (CLI) | payer MEDICARE, OTHER ==
[2022-10-22 08:33] LABS: BILIRUBIN Negative (Negative); BLOOD Negative (Negative); CLARITY Clear (Clear); COLOR Yellow (Yellow); GLUCOSE Negative (Negative); KETONE Negative (Negative); LEUKO ESTERASE 2+ (Negative); NITRITE Positive (Negative); PH 5.5 (4.5-8.0); SPECIFIC GRAVITY 1.015 (1.001-1.030); UROBILINOGEN 0.2 E.U./dl (0.0-1.0)
[2022-10-22 11:12] LABS: BACTERIA 3+; WBC 51-100 wbc/hpf (0-5)
== END | disposition home or self-care (01) ==
LOC: LAB 07:46
PROVIDERS: ATTEND Family Medicine
DX: R30.0 Dysuria (principal)

== ENCOUNTER → 2023-08-26 | Outpatient (CLI) | payer MEDICARE, OTHER ==
[2023-08-26 10:51] LABS: BUN 14 mg/dl (9-23); CHLORIDE 104 mmol/L (98-107); POTASSIUM 3.8 mmol/L (3.4-5.1)
== END | disposition home or self-care (01) ==
LOC: LAB 10:02
PROVIDERS: ATTEND Internal Medicine Cardiovascular Disease
DX: R00.2 Palpitations (principal); R00.1 Bradycardia, unspecified; R60.0 Localized edema

== ENCOUNTER → 2023-09-08 | Outpatient (CLI) | payer MEDICARE, OTHER | END | disposition home or self-care (01) | LOC: CARD 01:02 | PROVIDERS: ATTEND Internal Medicine Cardiovascular Disease | DX: I34.0 Nonrheumatic mitral (valve) insufficiency (principal); R00.2 Palpitations; R01.1 Cardiac murmur, unspecified; R60.0 Localized edema ==

== ENCOUNTER → 2025-02-19 | Outpatient (CLI) | payer MEDICARE, OTHER | END | disposition home or self-care (01) | LOC: RHCWE 10:23 | PROVIDERS: ATTEND Nurse Practitioner Family | DX: R30.0 Dysuria (principal) ==